=== PATIENT | female | born 1975 | race Caucasian/White ===

== ENCOUNTER 2017-06-06 05:50 | Emergency (ER) | payer MEDICARE, BC | END 2017-06-06 06:24 | disposition home or self-care (01) | LOC: D.ER 05:50 | DX: K08.89 Other specified disorders of teeth and supporting structures (principal); K02.9 Dental caries, unspecified; K04.7 Periapical abscess without sinus ==

== ENCOUNTER 2017-06-07 22:59 | Emergency (ER) | payer MEDICARE, BC | END 2017-06-07 23:34 | disposition home or self-care (01) | LOC: D.ER 22:59 | DX: K04.7 Periapical abscess without sinus (principal); K08.89 Other specified disorders of teeth and supporting structures ==

== ENCOUNTER 2017-06-27 11:40 | Emergency (ER) | payer BC | END 2017-06-27 12:50 | disposition home or self-care (01) | LOC: D.ER 11:40 | DX: S39.012A Strain of muscle, fascia and tendon of lower back, initial encounter (principal); X50.0XXA Overexertion from strenuous movement or load, initial encounter; Y93.89 Activity, other specified; Y92.89 Other specified places as the place of occurrence of the external cause; M62.838 Other muscle spasm; F17.200 Nicotine dependence, unspecified, uncomplicated ==

== ENCOUNTER 2017-07-05 21:11 | Emergency (ER) | payer BC | END 2017-07-05 21:43 | disposition home or self-care (01) | LOC: D.ER 21:11 | DX: M54.16 Radiculopathy, lumbar region (principal); F17.200 Nicotine dependence, unspecified, uncomplicated ==

== ENCOUNTER 2017-08-05 04:45 | Emergency (ER) | payer BC | END 2017-08-05 05:43 | disposition home or self-care (01) | LOC: D.ER 04:45 | DX: S93.602A Unspecified sprain of left foot, initial encounter (principal); W20.8XXA Other cause of strike by thrown, projected or falling object, initial encounter; Y93.89 Activity, other specified; Y92.89 Other specified places as the place of occurrence of the external cause ==

== ENCOUNTER 2017-12-10 02:00 | Emergency (ER) | payer BC, MEDICAID ==
[~2017-12-10] VITALS: Ht 175.3 cm; Wt 95.0 kg
[2017-12-10 02:07] VITALS: Ht 175.3 cm; Wt 95.0 kg
[2017-12-10] MEDS ORDERED: BUPRENORPHIN-N1 EACH SL (02:08)
[2017-12-10] MEDS ORDERED: TEMOVATE 0.05%15 G1 TOPICAL (02:28)
[2017-12-10 02:36] VITALS: BP 135/78
== END 2017-12-10 02:36 | disposition home or self-care (01) ==
LOC: D.ER 02:00
DX: L90.0 Lichen sclerosus et atrophicus (principal); F17.200 Nicotine dependence, unspecified, uncomplicated

== ENCOUNTER 2018-01-12 00:56 | Emergency (ER) | payer SELFPAY ==
[~2018-01-12] VITALS: Ht 175.3 cm; Wt 90.9 kg
[~2018-01-12 00:56] MED LIST: BUPRENORPHIN-N1 EACH SL; TEMOVATE 0.05%15 G1 TOPICAL
[2018-01-12 01:20] VITALS: Ht 175.3 cm; Wt 90.9 kg
[2018-01-12] MEDS ORDERED: TEMOVATE 0.05%15 G1 TOPICAL (02:03)
[2018-01-12 02:23] LABS: BASOPHILS 0.3 % (0-2); EOSINOPHILS 1.3 % (0-7); HEMATOCRIT 40.3 % (36.0-48.0); HEMOGLOBIN 13.7 g/dL (12-16); IMMATURE GRANULOCYTES 0.1 % (0-5); LYMPHOCYTES 40.8 % (15-50); MCH 31.1 pg (26.0-34.0); MCV 91.6 fL (80.0-100.0); MEAN PLATELET VOLUME 9.8 fL (7.4-10.4); NEUTROPHILS 51.5 % (40-80); PLATELET COUNT 215 10x3/uL (130-400)
[2018-01-12 02:32] LABS: HCG URINE NEGATIVE (NEGATIVE)
[2018-01-12 02:35] LABS: APPEARANCE CLOUDY (CLEAR); BILIRUBIN NEGATIVE (NEGATIVE); COLOR DK YELLOW (YELLOW); GLUCOSE NEGATIVE (NEGATIVE); KETONE NEGATIVE (NEGATIVE); NITRITE NEGATIVE (NEGATIVE); PROTEIN TRACE mg/dL (NEGATIVE); UROBILINOGEN NORMAL (NORMAL)
[2018-01-12 02:36] LABS: BACTERIA FEW /hpf (NONE SEEN); EPITHELIAL CELLS 0-5 /hpf (0-5); WHITE CELLS - URINE 0-5 /hpf (0-5)
[2018-01-12 02:38] LABS: ALBUMIN 3.5 g/dL (3.4-5.0); ALKALINE PHOSPHATASE 58 U/L (46-116); ALT (SGPT) 35 U/L (10-68); BILIRUBIN - TOTAL 0.34 mg/dL (0.2-1.3); CALC OSMOLALITY 281 mosm/kg (275-300); CALCIUM 8.8 mg/dL (8.5-10.1); CARBON DIOXIDE 31.1 mmol/L (21.0-32.0); CHLORIDE - SERUM 104 mmol/L (98-107); CREATININE - SERUM 0.7 mg/dL (0.6-1.3); GLUCOSE 84 mg/dL (74-106); PROTEIN - SERUM 7.6 g/dL (6.4-8.2); SODIUM 142 mmol/L (136-145); UREA NITROGEN 12 mg/dL (7-18); eGFR NON AFRICAN AMERICAN > 90 mL/min (90-120)
[2018-01-12 03:00] VITALS: BP 103/74
== END 2018-01-12 03:16 | disposition home or self-care (01) ==
LOC: D.ER 00:56
PROVIDERS: Family Medicine
DX: L90.0 Lichen sclerosus et atrophicus (principal); R10.2 Pelvic and perineal pain; R10.31 Right lower quadrant pain; K62.89 Other specified diseases of anus and rectum; F17.200 Nicotine dependence, unspecified, uncomplicated

== ENCOUNTER 2018-02-13 16:40 | Emergency (ER) | payer SELFPAY | END 2018-02-13 17:26 | disposition home or self-care (01) | LOC: D.ER 16:40 | DX: L90.0 Lichen sclerosus et atrophicus (principal); E11.9 Type 2 diabetes mellitus without complications; F17.200 Nicotine dependence, unspecified, uncomplicated ==

== ENCOUNTER → 2018-03-30 11:37 | Outpatient (CLI) | payer MEDICAID ==
[2018-02-13 16:43] VITALS: BMI 32.5
== END | disposition home or self-care (01) ==
LOC: D.CT 11:30
DX: R91.1 Solitary pulmonary nodule (principal)

== ENCOUNTER 2018-12-15 14:18 | Emergency (ER) | payer MEDICAID ==
[~2018-12-15] VITALS: Ht 175.3 cm; Wt 104.5 kg
[2018-12-15 14:37] VITALS: Ht 175.3 cm; Wt 104.5 kg
[2018-12-15] MEDS ORDERED: OMEPRAZOLE20 M1 PO (14:38)
[2018-12-15 15:00] LABS: BASOPHILS 0.3 % (0-2); EOSINOPHILS 1.3 % (0-7); HEMATOCRIT 43.6 % (36.0-48.0); HEMOGLOBIN 14.8 g/dL (12-16); IMMATURE GRANULOCYTES 0.1 % (0-5); LYMPHOCYTES 21.7 % (15-50); MCH 30.3 pg (26.0-34.0); MCHC 33.9 g/dL (31.0-37.0); MCV 89.3 fL (80.0-100.0); MEAN PLATELET VOLUME 9.6 fL (7.4-10.4); MONOCYTES 7.2 % (2-11); NEUTROPHILS 69.4 % (40-80); PLATELET COUNT 240 10x3/uL (130-400); RBC 4.88 10x6/uL (4.00-5.40); RDW 12.6 % (11.5-14.5); WBC 7.9 10x3/uL (4.8-10.8)
[2018-12-15 15:13] LABS: ALBUMIN 3.4 g/dL (3.4-5.0); ALKALINE PHOSPHATASE 65 U/L (46-116); ALT (SGPT) 22 U/L (10-68); BILIRUBIN - TOTAL 0.32 mg/dL (0.2-1.3); CALC OSMOLALITY 277 mosm/kg (275-300); CALCIUM 8.9 mg/dL (8.5-10.1); CARBON DIOXIDE 28.1 mmol/L (21.0-32.0); CHLORIDE - SERUM 103 mmol/L (98-107); CREATININE - SERUM 0.7 mg/dL (0.6-1.3); GLUCOSE 110 mg/dL (74-106); PROTEIN - SERUM 7.8 g/dL (6.4-8.2); SODIUM 140 mmol/L (136-145); UREA NITROGEN 8 mg/dL (7-18); eGFR NON AFRICAN AMERICAN > 90 mL/min (90-120)
[2018-12-15 15:17] LABS: AMYLASE - SERUM 31 U/L (25-115); LIPASE 120 U/L (73-393); TROPONIN-I < 0.017 ng/mL (0.000-0.060)
[2018-12-15 16:08] LABS: APPEARANCE CLEAR (CLEAR); BILIRUBIN NEGATIVE (NEGATIVE); COLOR YELLOW (YELLOW); GLUCOSE NEGATIVE (NEGATIVE); KETONE NEGATIVE (NEGATIVE); NITRITE NEGATIVE (NEGATIVE); PROTEIN NEGATIVE (NEGATIVE); UROBILINOGEN NORMAL (NORMAL)
[2018-12-15 16:12] LABS: EPITHELIAL CELLS OCC /hpf (0-5); RED CELLS - URINE OCC /hpf (0-5); WHITE CELLS - URINE OCC /hpf (NEGATIVE)
[2018-12-15] MEDS ORDERED: CHRONULAC30 ML PO (16:36)
[2018-12-15] MEDS ORDERED: BENTYL 20 MG TA20 MG PO (16:36)
[2018-12-15 16:55] LABS: HCG URINE NEGATIVE (NEGATIVE)
[2018-12-15 16:57] VITALS: BP 129/70
== END 2018-12-15 17:09 | disposition home or self-care (01) ==
LOC: D.ER 14:18
PROVIDERS: Family Medicine
DX: K59.00 Constipation, unspecified (principal); K62.89 Other specified diseases of anus and rectum